=== PATIENT | female | born 1980 | race Caucasian/White ===

== ENCOUNTER → 2017-05-13 03:59 | Emergency (ER) | payer SELFPAY ==
[~2017-05-13 03:59] MED LIST: HYDROmorphone INJ* 1 MG/ML CARPUJECT SYRINGE IV SLOW PU ONE; Ketorolac INJ* 30 MG/ML 1 ML VIAL IV ONE; NS 0.9% 1000 ML* 2,000 ML IV ONE; Ondansetron INJ* 2 MG/ML VIAL IV ONE; oxyCODONE/Acetamin 5/325 MG* TAB PO ONE
[2017-05-13 04:33] LABS: Urine Bacteria 2+ (Absent); Urine Bilirubin Negative (Negative); Urine Glucose Negative (Negative); Urine Nitrite Negative (Negative)
[2017-05-13 05:15] LABS: Hematocrit 43 % (35-47); Hemoglobin 14.7 g/dl (12.0-16.0); Mean Corpuscular HGB Conc 34 g/dl (31-36); Mean Corpuscular Hemoglobin 29 pg (27-31); Mean Corpuscular Volume 86 fL (80-97); Mean Platelet Volume 8 um3 (7.4-10.4); Red Blood Count 5.02 10^6/ul (4.0-5.4); Red Cell Distribution Width 14 % (10.5-15); White Blood Count 10.6 10^3/ul (3.5-10.8)
[2017-05-13 05:27] LABS: ALT 19 U/L (7-52); AST 15 U/L (13-39); Albumin 4.2 g/dL (3.2-5.2); Alkaline Phosphatase 48 U/L (34-104); Anion Gap 6 mmol/L (2-11); BUN/Creatinine Ratio 16.2 (8-20); Blood Urea Nitrogen 16 mg/dL (6-24); C Reactive Protein 2.14 mg/L (< 5.00); CO2 Carbon Dioxide 23 mmol/L (22-32); Calcium 9.4 mg/dL (8.6-10.3); Chloride 107 mmol/L (101-111); EGFR African American 82.6 (>60); EGFR Non-African American 64.2 (>60); Glucose 104 mg/dL (70-100); Lipase 10 U/L (11.0-82.0); Potassium 3.9 mmol/L (3.5-5.0); Sodium 136 mmol/L (133-145); Total Protein 7.2 g/dL (6.4-8.9)
--- NOTE | 2017-05-13 06:44 | ED ---
Cara Martin Alfonso, scribed for Ngozi Ryan MD on 05/13/17 at 0457 . Abdominal Pain/Female - HPI Summary HPI Summary: This patient is a 36 year old F presenting to [facility] accompanied by with a chief complaint of suprapubic pain since a few hours ago. She states I started feeling like I had a UTI, but I may have passed a stone. The patient rates the pain 10/10 in severity. Symptoms aggravated by urination. Symptoms alleviated by nothing. Patient reports hematuria (last week), and dysuria. A0. - History of Current Complaint Chief Complaint: EDOBProblems Stated Complaint: LOWER ABD PAIN, PELVIC PAIN Time Seen by Provider: 05/13/17 04:26 Hx Obtained From: Patient Onset/Duration: Sudden Onset, Lasting Hours, Still Present Timing: Constant Severity Currently: Severe Pain Intensity: 10 Pain Scale Used: 0-10 Numeric Location: Suprapubic Aggravating Factor(s): Other: - urination Alleviating Factor(s): Nothing Associated Signs and Symptoms: Positive: Other: - hematuria (last week), and dysuria Allergies/Adverse Reactions: Allergies Allergy/AdvReac Type Severity Reaction Status Date / Time Hydrocodone Allergy Nausea And Verified 04/21/16 12:35 Vomiting PMH/Surg Hx/FS Hx/Imm Hx Endocrine/Hematology History: Denies: Hx Diabetes, Hx Thyroid Disease Cardiovascular History: Denies: Hx Hypercholesterolemia, Hx Hypertension, Hx Pacemaker/ICD, Hx Peripheral Vascular Disease Respiratory History: Reports: Hx Asthma Musculoskeletal History: Denies: Hx Arthritis, Hx Osteoporosis Sensory History: Denies: Hx Cataracts, Hx Contacts or Glasses, Hx Glaucoma Opthamlomology History: Denies: Hx Cataracts, Hx Contacts or Glasses, Hx Glaucoma Neurological History: Denies: Hx Headaches, Hx Seizures, Hx Transient Ischemic Attacks (TIA) Psychiatric History: Denies: Hx Anxiety, Hx Depression, Hx Panic Disorder - Surgical History Surgery Procedure, Year, and Place: TUBES IN EARS CHILD,TUBAL, TEETH REMOVAL Infectious Disease History: No Infectious Disease History: Denies: Traveled Outside the [place] in Last 30 Days - Family History Known Family History: Positive: Cardiac Disease, Diabetes, Other Family History: CVA and CA - Social History Alcohol Use: Occasionally Hx Substance Use: No Substance Use Type: Reports: Marijuana Hx Tobacco Use: Yes Smoking Status (MU): Former Smoker Review of Systems Negative: Fever Positive: Abdominal Pain - suprapubic Positive: dysuria, hematuria All Other Systems Reviewed And Are Negative: Yes Physical Exam - Summary Physical Exam Summary: General: Mildly ill appearing, no pain distress, Uncomfortable Skin: Warm, Skin Color Reflects Adequate Perfusion, Dry Eyes: EOMI, AKIKO ENT: Pharynx normal, TMs normal Neck: Supple, nontender Respiratory: CTA, breath sounds present, no rhonchi, no wheezes, no rales Cardiovascular: RRR, no murmur, no rub, no gallop Abdomen: Soft, Suprapubic tenderness, Non-distended, no guarding, no rebound Bowel: Present Musculoskeletal: MOODY, No edema Neuro: Sensory/motor intact, A&Ox3, CN intact 2-12 Psych: Affect/mood appropriate Triage Information Reviewed: Yes Vital Signs On Initial Exam: Initial Vitals Temp Pulse Resp BP Pulse Ox 97.0 F 83 20 147/80 98 05/13/17 04:00 05/13/17 04:00 05/13/17 04:00 05/13/17 04:00 05/13/17 04:00 Vital Signs Reviewed: Yes - Leslee Coma Scale Coma Scale Total: 15 Diagnostics - Vital Signs Vital Signs Temp Pulse Resp BP Pulse Ox 05/13/17 04:17 99 98 05/13/17 04:14 151/102 05/13/17 04:00 97.0 F 83 20 147/80 98 - Laboratory Lab Results: Lab Results 05/13/17 Range/Units 04:10 Urine Color Yellow Urine Appearance Cloudy Urine pH 6.0 (5-9) Ur Specific [place] 1.012 (1.010-1.030) Urine Protein 1+(30 mg/dl) H (Negative) Urine Ketones Negative (Negative) Urine Blood 2+ H (Negative) Urine Nitrate Negative (Negative) Urine Bilirubin Negative (Negative) Urine Urobilinogen Negative (Negative) Ur Leukocyte Esterase 3+ H (Negative) Urine WBC (Auto) 3+(>20/hpf) H (Absent) Urine RBC (Auto) 3+(>10/hpf) H (Absent) Ur Squamous Epith Cells Present H (Absent) Ur Renal Epithelial Cell Present H (Absent) Urine Bacteria 2+ H (Absent) Urine Glucose Negative (Negative) Result Diagrams: 05/13/17 05:00 05/13/17 05:00 Lab Statement: Any lab studies that have been ordered have been reviewed, and results considered in the medical decision making process. - CT A/P CT Interpretation Completed By: Radiologist - Adnexal cystic structure likely ovarian in origin. Correlation with history and pelvic exam is recommended. Pelvic US may be helpful for further evaluation. ED physician has reviewed this radiology report and agrees. Abdominal Pain Fem Course/Dx - Course Course Of Treatment: 36 yo female who reports dysuria and then an episode of difficulty peeing with the sound of a stone dropping into the toilet now with urine showing uti and ct showing known b/l ovarian cysts. Pt has already had ceftriaxone and will be getting cipro as an outpt - Diagnoses Provider Diagnoses: UTI (urinary tract infection) Discharge - Discharge Plan Condition: Stable Disposition: HOME Prescriptions: Ciprofloxacin TAB* [Cipro 500 MG TAB*] 500 mg PO BID #14 tab oxyCODONE/Acetamin 5/325 MG* [Percocet 5/325 TAB*] 1 tab PO Q8H PRN #9 tab MDD 3 PRN Reason: Pain The documentation as recorded by the Cara burris Alfonso accurately reflects the service I personally performed and the decisions made by me, Ngozi Ryan MD.
[2017-05-13 07:57] VITALS: BP 101/60
--- NOTE | 2017-05-13 08:05 | RAD ---
CLINICAL HISTORY: Hematuria, right-sided pain COMPARISON: None TECHNIQUE: Multiple contiguous axial CT scans were obtained of the abdomen and pelvis, without intravenous contrast enhancement. Coronal and sagittal multiplanar reformations are submitted for review. Oral contrast was not administered. FINDINGS: The study is limited by the lack of intravenous contrast. This limits evaluation of the solid organs and vasculature. LUNG BASES: The lung bases are clear. LIVER: The liver is normal in shape, size, contour, and attenuation. BILE DUCTS: There is no intrahepatic or extrahepatic biliary dilatation. GALLBLADDER: The gallbladder is normal, without pericholecystic inflammatory change. PANCREAS: The pancreas is normal, without mass or ductal dilatation. SPLEEN: Normal in size and appearance. UPPER GI TRACT: Evaluation of the gastrointestinal tract is limited by incomplete gastric distention. The upper GI tract is unremarkable. SMALL BOWEL AND MESENTERY: The small bowel is normal in contour, course, and caliber. There is no obstruction or dilatation. COLON: The colon is normal in contour, course, caliber. There is no pericolonic inflammatory change. ADRENALS: Normal bilaterally. KIDNEYS: The kidneys are normal in shape, size, contour, and axis. There is no hydronephrosis or nephrolithiasis. BLADDER: The bladder is smooth in contour. PELVIC ORGANS: Bilateral ovarian cysts are noted measuring simple fluid in attenuation, up to 3.3 cm in size. AORTA: The aorta is normal. IVC: Unremarkable LYMPH NODES: There is no lymphadenopathy by size criteria. ABDOMINAL WALL: There is no evidence for abdominal wall hernia. BONES AND SOFT TISSUES: The bones and soft tissues are unremarkable. OTHER: None IMPRESSION: 1. BILATERAL OVARIAN CYSTS. 2. NO APPRECIABLE HYDRONEPHROSIS OR NEPHROLITHIASIS.
--- NOTE | 2017-05-15 08:38 | PN ---
Progress Note - Progress Note Date of Service: 05/15/17 Note: Patient urine culture grew E coli 50-75,000. patient placed on cipro will wait for final culture.
== END | disposition home or self-care (01) ==
LOC: ED 03:59
DX: N39.0 Urinary tract infection, site not specified (principal); B96.20 Unspecified Escherichia coli [E. coli] as the cause of diseases classified elsewhere; R31.9 Hematuria, unspecified; Z32.02 Encounter for pregnancy test, result negative; J45.909 Unspecified asthma, uncomplicated; Z87.891 Personal history of nicotine dependence; F12.90 Cannabis use, unspecified, uncomplicated; Z88.5 Allergy status to narcotic agent
CPT/HCPCS: 36415; 74176; 80053; 81003; 81015; 83690; 84702; 85025; 86140; 87077; 87086; 87186; 96361; 96365; 96366; 96375; 99283; A9270-GY; J0696; J1170; J1885; J2405

== ENCOUNTER 2017-08-16 15:29 | Emergency (ER) | payer SELFPAY ==
[2017-08-16 15:34] VITALS: BP 108/97
[2017-08-16] MEDS ORDERED: Ibuprofen TAB* 600 MG PO ONE (16:45)
[2017-08-16] MEDS ORDERED: Ibuprofen TAB* 600 MG ONE (16:46)
--- NOTE | 2017-08-16 17:35 | RAD ---
INDICATION: LEFT wrist and thumb pain post fall. COMPARISON: No relevant prior exams available on the [facility] [place] PACS for comparison. TECHNIQUE: AP, lateral, and oblique views LEFT wrist. AP, lateral, and oblique views LEFT hand. REPORT: Normal articular alignment at the wrist and hand. No cortical disruption or suspicious trabecular irregularity to suggest fracture. No arthropathic change evident. Unremarkable soft tissue contours. IMPRESSION: Negative radiographic exam of the LEFT wrist and hand.
--- NOTE | 2017-08-16 17:35 | RAD ---
INDICATION: LEFT wrist and thumb pain post fall. COMPARISON: No relevant prior exams available on the [facility] [place] for comparison. TECHNIQUE: AP, lateral, and oblique views LEFT wrist. AP, lateral, and oblique views LEFT hand. REPORT: Normal articular alignment at the wrist and hand. No cortical disruption or suspicious trabecular irregularity to suggest fracture. No arthropathic change evident. Unremarkable soft tissue contours. IMPRESSION: Negative radiographic exam of the LEFT wrist and hand.
--- NOTE | 2017-08-16 19:37 | ED ---
Upper Extremity Pain - HPI Summary HPI Summary: Patient presents to the ED with CC of left hand and wrist pain. She states she lost her footing, slipped on the floor and fell backwards landing on an outstretched hand a few hours prior to arrival. She has diffuse pain over the left hand and left wrist. Denies numbness, tingling. Denies color or temperature changes. Thorough physical exam was performed, focusing on special wrist tests. Limited ROM. Pain with palpation over ulnar aspect of wrist at ulnar head. Pain with palpation over radial aspect over radial head. No pain, swelling or tenderness over anatomical snuffbox. No crepitus noted. No pain on palpation over medial or lateral elbow or forearm tenderness. Due to patient pain around injury, physical exam was limited. Pulses intact bilaterally. No temperature change, color change or pallor noted bilaterally. Sensory intact of radial, medial and ulnar nerve. Capillary refill < 2 sec. - History of Current Complaint Chief Complaint: EDExtremityUpper Stated Complaint: POSSIBLE BROKEN LEFT WRIST Time Seen by Provider: 08/16/17 15:40 Hx Obtained From: Patient Mechanism Of Injury: Blunt Trauma Onset/Duration: Started Hours Ago Timing: Constant Severity Initially: Moderate Severity Currently: Moderate Pain Location: Wrist, Hand Character: Aching, Throbbing Aggravating Factor(s): Movement, Lifting, Flexion, Extension, Internal/External Rotation, Abduction, Adduction Alleviating Factor(s): Ice Associated Signs & Symptoms: Negative: Swelling, Redness, Bruising, Numbness/ Tingling, Chest Pain, Diaphoresis, Nausea, Vomiting Related History: Dominant Hand Right - Risk Factors Non-Orthopedic Risk Factor: Negative DVT Risk Factors: Negative Septic Arthritis Risk Factor: Negative Compartment Syndrome Risk Factors: Pain - Allergies/Home Medications Allergies/Adverse Reactions: Allergies Allergy/AdvReac Type Severity Reaction Status Date / Time Hydrocodone Allergy Nausea And Verified 04/21/16 12:35 Vomiting PMH/Surg Hx/FS Hx/Imm Hx Previously Healthy: Yes Endocrine/Hematology History: Denies: Hx Diabetes, Hx Thyroid Disease Cardiovascular History: Denies: Hx Hypercholesterolemia, Hx Hypertension, Hx Pacemaker/ICD, Hx Peripheral Vascular Disease Respiratory History: Reports: Hx Asthma Musculoskeletal History: Denies: Hx Arthritis, Hx Osteoporosis Sensory History: Denies: Hx Cataracts, Hx Contacts or Glasses, Hx Glaucoma Opthamlomology History: Denies: Hx Cataracts, Hx Contacts or Glasses, Hx Glaucoma Neurological History: Denies: Hx Headaches, Hx Seizures, Hx Transient Ischemic Attacks (TIA) Psychiatric History: Denies: Hx Anxiety, Hx Depression, Hx Panic Disorder - Surgical History Surgery Procedure, Year, and Place: TUBES IN EARS CHILD,TUBAL, TEETH REMOVAL Infectious Disease History: No Infectious Disease History: Denies: Traveled Outside the [place] in Last 30 Days - Family History Known Family History: Positive: Cardiac Disease, Diabetes, Other Family History: CVA and CA - Social History Occupation: Employed Full-time Lives: With Family Alcohol Use: Occasionally Hx Substance Use: No Substance Use Type: Reports: Marijuana Hx Tobacco Use: Yes Smoking Status (MU): Former Smoker Review of Systems Constitutional: Negative Negative: Fever, Chills, Fatigue Eyes: Negative Cardiovascular: Negative Respiratory: Negative Positive: no symptoms reported, see HPI Positive: Arthralgia - left hand and wrist pain Skin: Negative Neurological: Negative All Other Systems Reviewed And Are Negative: Yes Physical Exam Triage Information Reviewed: Yes Vital Signs On Initial Exam: Initial Vitals Temp Pulse Resp BP Pulse Ox 98.0 F 98 19 108/97 99 08/16/17 15:30 08/16/17 15:30 08/16/17 15:30 08/16/17 15:30 08/16/17 15:30 Vital Signs Reviewed: Yes Appearance: Positive: Well-Appearing, Well-Nourished Skin: Positive: Warm, Skin Color Reflects Adequate Perfusion Head/Face: Positive: Normal Head/Face Inspection Eyes: Positive: EOMI, AKIKO, Conjunctiva Clear Neck: Positive: Supple, No Lymphadenopathy Respiratory/Lung Sounds: Positive: Clear to Auscultation, Breath Sounds Present Cardiovascular: Positive: Normal, RRR, Pulses are Symmetrical in both Upper and Lower Extremities Musculoskeletal: Positive: Pain @ - see above Neurological: Positive: Speech Normal Psychiatric: Positive: Normal, Affect/Mood Appropriate - [place] Coma Scale Coma Scale Total: 15 Diagnostics - Vital Signs Vital Signs Temp Pulse Resp BP Pulse Ox 08/16/17 15:30 98.0 F 98 19 108/97 99 - Laboratory Lab Statement: Any lab studies that have been ordered have been reviewed, and results considered in the medical decision making process. Course/Dx - Course Course Of Treatment: Based on [place] Wrist Rules, patient sent to imaging. Xray negative for fracture or other acute findings. Soft tissue swelling noted over the dorsal aspect of the wrist. Thumb spica placed and patient tolerated well to allow for immobilization for this period of time. Patient given orthopedic follow up in 5-7 days. Encouraged Ibuprofen 600mg three times daily with meals for pain. Return precautions given. Educated patient regarding wrist injuries, healing time and the possibility of further evaluation and imaging as orthopedist sees fit. - Diagnoses Provider Diagnoses: Wrist strain Discharge - Discharge Plan Condition: Stable Disposition: HOME Patient Education Materials: Wrist Sprain (ED) Referrals: Cat Watson MD [Medical Doctor] - Dagmar Gooden NP [Primary Care Provider] - Additional Instructions: German wrap area for your comfort and to allow for immobilization during this time to prevent re-injury. Ibuprofen 600mg three times daily with meals for pain. Follow up with orthopedic physician in 5-7 days. If numbness, tingling or decreased sensation develop, you notice color changes in your fingers or pain is worsening, come back to ED immediately for re- evaluation. Protect the area. For your comfort level, do not bear weight, pull or push until you can injury is somewhat healed. This may involve the need for immobilization or crutches for a period of time. Rest the involved area, but not too long. You may need to be off your injury for some time to allow for healing, however excessive immobilization of joints can lead to stiffness and delay healing time. Early mobilization is encouraged if it is pain-free. Ice. Not directly on the skin. Cover with a towel. Apply ice no more than 30 minutes at a time Compression: You may use and keep an german wrap bandage over the injury to decrease swelling. Again, this should be limited and be taken off periodically to encourage early range of motion and mobilization. Elevate: Try to elevate the injured area above the heart whenever possible.
== END 2017-08-16 18:33 | disposition home or self-care (01) ==
LOC: ED 15:29
DX: S66.912A Strain of unspecified muscle, fascia and tendon at wrist and hand level, left hand, initial encounter (principal); W01.0XXA Fall on same level from slipping, tripping and stumbling without subsequent striking against object, initial encounter; Y93.9 Activity, unspecified; Z87.891 Personal history of nicotine dependence; Z88.5 Allergy status to narcotic agent
CPT/HCPCS: 99282; A9270-GY

== ENCOUNTER 2017-12-31 08:13 | Emergency (ER) | payer SELFPAY ==
[2017-12-31 08:36] LABS: ABS Basophils 0.1 10^3/ul (0-0.2); ABS Eosinophils 0.1 10^3/ul (0-0.6); ABS Lymphocytes 2.5 10^3/ul (1.0-4.8); ABS Monocytes 0.6 10^3/ul (0-0.8); ABS Nucleated RBC 0 10^3/ul; Eosinophil % 1.1 % (0-6); Hematocrit 38 % (35-47); Hemoglobin 13.2 g/dl (12.0-16.0); Lymphocyte % 22.1 % (25-47); Mean Corpuscular HGB Conc 34 g/dl (31-36); Mean Corpuscular Hemoglobin 28 pg (27-31); Mean Corpuscular Volume 82 fL (80-97); Mean Platelet Volume 7.4 um3 (7.4-10.4); Nucleated Red Blood Cells % 0.1; Platelet Count 266 10^3/ul (150-450); Red Blood Count 4.65 10^6/ul (4.0-5.4); Red Cell Distribution Width 14 % (10.5-15); White Blood Count 11.4 10^3/ul (3.5-10.8)
[2017-12-31] MEDS ORDERED: Ketorolac INJ* 30 MG/ML 1 ML VIAL IV PUSH ONE (08:38)
--- NOTE | 2017-12-31 08:42 | ED ---
Abdominal Pain/Female - HPI Summary HPI Summary: Patient is an otherwise healthy 37-year-old female who presents to the ED with chief complaint of right flank pain radiating into the right lower quadrant and groin since last week. Pain has been intermittent and then constant. Denies any fevers, sweats, chills. 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 Never been diagnosed with a kidney stone. Endorses hematuria 2 days ago, but hasn't denied this since. Denies any constipation or diarrhea. Denies any vomiting. Last bowel movement yesterday. She continues to eat and drink okay. She denies any other UTI symptoms. She is afebrile on arrival and but other vital signs are stable. Mother is at bedside. Takes pantoprazole for GERD symptoms. 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 She appears in no acute distress on arrival. - History of Current Complaint Chief Complaint: EDFlankPain Stated Complaint: RT FLANK PAIN Time Seen by Provider: 12/31/17 08:14 Hx Obtained From: Patient ?: No Onset/Duration: Sudden Onset Timing: Constant Severity Initially: Moderate Severity Currently: Moderate Pain Intensity: 8 Pain Scale Used: 0-10 Numeric Location: Flank Radiates: Yes Radiates to: RLQ, Other - R groin Character: Sharp, Cramping Aggravating Factor(s): Nothing Alleviating Factor(s): Nothing Associated Signs and Symptoms: Positive: Diaphoresis, Urinary Symptoms - hematuria, Nausea. Negative: Fever, Cough, Chest Pain, Constipation, Blood in Stool, Decreased Appetite, Vaginal Bleeding, Vomiting - Risk Factors Ectopic Risk Factor: Negative Ovarian Torsion Risk Factor: Reproductive Age Allergies/Adverse Reactions: Allergies Allergy/AdvReac Type Severity Reaction Status Date / Time hydrocodone Allergy Nausea And Verified 12/31/17 08:14 Vomiting Home Medications: Home Medications Pantoprazole TAB (NF) [Protonix TAB (NF)] 40 mg PO DAILY 12/31/17 [History Confirmed 12/31/17] PMH/Surg Hx/FS Hx/Imm Hx Previously Healthy: Yes Endocrine/Hematology History: Denies: Hx Diabetes, Hx Thyroid Disease Cardiovascular History: Denies: Hx Hypercholesterolemia, Hx Hypertension, Hx Pacemaker/ICD, Hx Peripheral Vascular Disease Respiratory History: Reports: Hx Asthma Musculoskeletal History: Denies: Hx Arthritis, Hx Osteoporosis Sensory History: Denies: Hx Cataracts, Hx Contacts or Glasses, Hx Glaucoma Opthamlomology History: Denies: Hx Cataracts, Hx Contacts or Glasses, Hx Glaucoma Neurological History: Denies: Hx Headaches, Hx Seizures, Hx Transient Ischemic Attacks (TIA) Psychiatric History: Denies: Hx Anxiety, Hx Depression, Hx Panic Disorder - Surgical History Surgery Procedure, Year, and Place: TUBES IN EARS CHILD,TUBAL, TEETH REMOVAL - Immunization History Hx Pertussis Vaccination: No Immunizations Up to Date: Unable to Obtain/Confirm Infectious Disease History: No Infectious Disease History: Denies: Traveled Outside the [place] in Last 30 Days - Family History Known Family History: Positive: Cardiac Disease, Diabetes, Other Family History: CVA and CA - Social History Occupation: Employed Full-time Lives: With Family Alcohol Use: Occasionally Hx Substance Use: No Substance Use Type: Reports: None Hx Tobacco Use: Yes Smoking Status (MU): Former Smoker Review of Systems Constitutional: Negative Negative: Fever, Chills, Fatigue, Skin Diaphoresis Eyes: Negative Cardiovascular: Negative Negative: Shortness Of Breath, Cough Positive: Abdominal Pain, Nausea. Negative: Vomiting, Diarrhea Positive: flank pain - R, hematuria Musculoskeletal: Negative Skin: Negative Neurological: Negative All Other Systems Reviewed And Are Negative: Yes Physical Exam Triage Information Reviewed: Yes Vital Signs On Initial Exam: Initial Vitals Temp Pulse Resp BP Pulse Ox 97.9 F 87 16 132/78 96 12/31/17 08:15 12/31/17 08:15 12/31/17 08:15 12/31/17 08:15 12/31/17 08:15 Vital Signs Reviewed: Yes Appearance: Positive: Well-Appearing, Well-Nourished Skin: Positive: Warm, Skin Color Reflects Adequate Perfusion Head/Face: Positive: Normal Head/Face Inspection Eyes: Positive: EOMI, AKIKO, Conjunctiva Clear Neck: Positive: Supple, Nontender, No Lymphadenopathy Respiratory/Lung Sounds: Positive: Clear to Auscultation, Breath Sounds Present Cardiovascular: Positive: Normal, RRR, Pulses are Symmetrical in both Upper and Lower Extremities Abdomen Description: Positive: Nontender, Soft, CVA Tenderness (R) Bowel Sounds: Positive: Present Musculoskeletal: Positive: Normal, Strength/ROM Intact Neurological: Positive: Sensory/Motor Intact, Alert, Oriented to Person Place, Time, Speech Normal Psychiatric: Positive: Normal, Affect/Mood Appropriate AVPU Assessment: Alert Diagnostics - Vital Signs Vital Signs Temp Pulse Resp BP Pulse Ox 12/31/17 08:33 82 123/78 96 12/31/17 08:27 89 97 12/31/17 08:15 97.9 F 87 16 132/78 96 - Laboratory Lab Results: Lab Results 12/31/17 Range/Units 08:27 WBC 11.4 H (3.5-10.8) 10^3/ul RBC 4.65 (4.0-5.4) 10^6/ul Hgb 13.2 (12.0-16.0) g/dl Hct 38 (35-47) % MCV 82 (80-97) fL MCH 28 (27-31) pg MCHC 34 (31-36) g/dl RDW 14 (10.5-15) % Plt Count 266 (150-450) 10^3/ul MPV 7.4 (7.4-10.4) um3 Neut % (Auto) 70.4 (38-83) % Lymph % (Auto) 22.1 L (25-47) % [place] % (Auto) 5.5 (0-7) % Eos % (Auto) 1.1 (0-6) % Baso % (Auto) 0.9 (0-2) % Absolute Neuts (auto) 8.0 H (1.5-7.7) 10^3/ul Absolute Lymphs (auto) 2.5 (1.0-4.8) 10^3/ul Absolute Monos (auto) 0.6 (0-0.8) 10^3/ul Absolute Eos (auto) 0.1 (0-0.6) 10^3/ul Absolute Basos (auto) 0.1 (0-0.2) 10^3/ul Absolute Nucleated RBC 0 10^3/ul Nucleated RBC % 0.1 Result Diagrams: 12/31/17 08:27 12/31/17 08:27 Lab Statement: Any lab studies that have been ordered have been reviewed, and results considered in the medical decision making process. Re-Evaluation - Re-Evaluation First Eval Change: Unchanged - states unchanged despite having toradol Abdominal Pain Fem Course/Dx - Course Course Of Treatment: During the course of treatment, the patient is evaluated for right flank pain radiating into the right lower quadrant and groin. Denies any urinary symptoms other than gross hematuria 2 days ago. Toradol 30 mg IV given on arrival. Labs obtained. CT abdomen and pelvis without contrast. Urinalysis obtained showing no leuks, WBC. IMPRESSION: NO OBSTRUCTIVE UROPATHY IS PRESENT. APPENDIX IS NORMAL. RIGHT OVARIAN CYST MEASURING UP TO 4.0 CM. SMALL LYMPH NODES IN THE CECAL MESENTERY FOR. WHICH MESENTERIC ADENITIS CANNOT BE EXCLUDED. Discussed at length with patient the results of CT scan and labs. She states she does not feel these are accurate as she continues to have right back pain radiating into the right lower quadrant. The appendix was visualized and commented and right adnexal cyst measuring 4 cm is noted. Unlikely ovarian torsion as symptoms have been present for over 1 week and have been intermittent. Patient is requesting a CT abdomen and pelvis with contrast. ski technician to speak with patient to give risks involved with CT and patient declines at this time. Patient appears to be upset but is requesting discharge. 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 - Diagnoses Differential Diagnosis: Positive: Ovarian Cyst Provider Diagnoses: Ovarian cyst Is Visit Related: No - Provider Notifications Instructed by Provider To: Have Pt Call For Appt. - OBGYN Discharge - Sign-Out/Discharge Documenting (check all that apply): Discharge/Admit/Transfer - Discharge Plan Condition: Stable Disposition: HOME Patient Education Materials: Ovarian Cyst (ED) Forms: *Work Release Referrals: Michelle Monteiro MD [Medical Doctor] - No Primary Care Phys,NOPCP [Primary Care Provider] - Additional Instructions: Please follow up with OBGYN regarding ovarian cyst - Billing Disposition and Condition Condition: STABLE Disposition: HOME
[2017-12-31 08:44] LABS: Urine Appearance Clear; Urine Blood Negative (Negative); Urine Color Yellow; Urine Ketones Negative (Negative); Urine Protein Negative (Negative); Urine Specific Gravity 1.025 (1.010-1.030); Urine Urobilinogen Negative (Negative)
[2017-12-31 09:01] LABS: EGFR Non-African American 77.2 (>60)
--- NOTE | 2017-12-31 09:31 | RAD ---
Mirna: Right-sided flank pain. CT of the abdomen and pelvis was performed without oral or IV contrast administration. Coronal and sagittal reconstructed images were obtained. The lung bases demonstrate no pleural fluid, nodules or masses. Heart is of normal size without evidence of pericardial effusion. Liver is normal in size. No focal lesions or intrahepatic ductal dilatation is noted. The gallbladder demonstrates no calcified gallstones. Common duct is not dilated. The pancreas demonstrates no mass or pancreatic ductal dilatation. The spleen is normal in size. No adrenal masses noted. The kidneys demonstrate no hydronephrosis. No retroperitoneal lymphadenopathy is noted. No dilated loops of bowel are noted. The colon is filled with stool. CT of the pelvis demonstrates diverticulosis. The appendix is normal. The uterus is unremarkable. There is a right adnexal cyst measuring up to 4.0 cm. Left ovary demonstrates follicular cyst. No free fluid is identified. No inguinal hernias are noted. There may be some small lymph nodes in the right pericecal mesentery and the possibility of mesenteric adenitis should BE considered. IMPRESSION: NO OBSTRUCTIVE UROPATHY IS PRESENT. APPENDIX IS NORMAL. RIGHT OVARIAN CYST MEASURING UP TO 4.0 CM. SMALL LYMPH NODES IN THE CECAL MESENTERY FOR WHICH MESENTERIC ADENITIS CANNOT BE EXCLUDED.
[2017-12-31] MEDS ORDERED: Morphine VIAL* 4 MG/ML VIAL (1 ml vial) IV ONE (10:02)
[2017-12-31] MEDS ORDERED: Metoclopramide IV* 5 MG/ML 2 ML VIAL IV ONE (10:02)
[2017-12-31 10:51] VITALS: BP 125/85
== END 2017-12-31 10:33 | disposition home or self-care (01) ==
LOC: ED 08:13
DX: N83.202 Unspecified ovarian cyst, left side (principal); K21.9 Gastro-esophageal reflux disease without esophagitis; Z87.891 Personal history of nicotine dependence
CPT/HCPCS: 36415; 74176; 80053; 81003; 81015; 83605; 84702; 85025; 86140; 87086; 96374; 96375; 99283; J1885; J2270; J2765

== ENCOUNTER 2019-01-08 06:12 | Emergency (ER) | payer SELFPAY ==
[2019-01-08] MEDS ORDERED: cefTRIAXone VIAL(*) 1,000 MG VIAL IM ONE (07:27)
[2019-01-08 08:24] VITALS: BP 120/96
--- NOTE | 2019-01-08 08:29 | ED ---
Skin Complaint - HPI Summary HPI Summary: Patient presents to the ED with possible bug bite to the right upper arm to the ventral side. The area is approximately 8 cm in width and 15 cm in length. She states the symptoms began on Wednesday. She states she awoke with an erythematous jose with central clearing. The areas begun to spread, extending to the elbow and just distal to the axillary area. The area is warm and erythematous and painful to touch. She states she has never had an abscess to this area before. She believes bug bite, but does not recall getting a but bite. No history of tics or other rashes. She does state she lives in the [facility]. She's not been using anything [id number] for relief. - History of Current Complaint Chief Complaint: EDExtremityUpper Time Seen by Provider: 01/08/19 06:28 Stated Complaint: BUG BITE ARM IS SWOLLEN AND HOT PER PT Hx Obtained From: Patient Onset/Duration: Started Hours Ago Skin Exposure Onset/Duration: Hours Ago Timing: Constant Current Severity: Moderate Pain Intensity: 6 Pain Scale Used: 0-10 Numeric Skin Location: Arm Character: Swelling, Pain, Redness, Raised, Painful Aggravating Symptom(s): Touch Alleviating Symptom(s): Nothing Associated Signs & Symptoms: Negative, Tenderness, Red Streaks Related History: Insect Bite/Sting - Allergy/Home Medications Allergies/Adverse Reactions: Allergies Allergy/AdvReac Type Severity Reaction Status Date / Time hydrocodone Allergy Nausea And Verified 01/08/19 06:16 Vomiting PMH/Surg Hx/FS Hx/Imm Hx Previously Healthy: Yes Endocrine/Hematology History: Denies: Hx Diabetes, Hx Thyroid Disease Cardiovascular History: Denies: Hx Hypercholesterolemia, Hx Hypertension, Hx Pacemaker/ICD, Hx Peripheral Vascular Disease Respiratory History: Reports: Hx Asthma Musculoskeletal History: Denies: Hx Arthritis, Hx Osteoporosis Sensory History: Denies: Hx Cataracts, Hx Contacts or Glasses, Hx Glaucoma Opthamlomology History: Denies: Hx Cataracts, Hx Contacts or Glasses, Hx Glaucoma Neurological History: Denies: Hx Headaches, Hx Seizures, Hx Transient Ischemic Attacks (TIA) Psychiatric History: Denies: Hx Anxiety, Hx Depression, Hx Panic Disorder - Surgical History Surgery Procedure, Year, and Place: TUBES IN EARS CHILD,TUBAL, TEETH REMOVAL - Immunization History Hx Pertussis Vaccination: No Immunizations Up to Date: Yes Infectious Disease History: No Infectious Disease History: Denies: Traveled Outside the [place] in Last 30 Days - Family History Known Family History: Positive: Cardiac Disease, Diabetes, Other Family History: CVA and CA - Social History Occupation: Employed Full-time Lives: With Family Alcohol Use: Rare Hx Substance Use: No Substance Use Type: Reports: None Hx Tobacco Use: Yes Smoking Status (MU): Light Every Day Tobacco Smoker Review of Systems Constitutional: Negative Negative: Fever, Chills, Fatigue, Skin Diaphoresis Negative: Palpitations, Chest Pain Negative: Shortness Of Breath, Cough Genitourinary: Negative Positive: no symptoms reported, see HPI Negative: Arthralgia, Myalgia Positive: Other - right upper arm swelling, redness Neurological: Negative All Other Systems Reviewed And Are Negative: Yes Physical Exam Triage Information Reviewed: Yes Vital Signs On Initial Exam: Initial Vitals Temp Pulse Resp BP Pulse Ox 98.1 F 90 16 141/88 98 01/08/19 06:14 01/08/19 06:14 01/08/19 06:14 01/08/19 06:14 01/08/19 06:14 Vital Signs Reviewed: Yes Appearance: Positive: Well-Appearing, Well-Nourished Skin: Positive: Skin Color Reflects Adequate Perfusion, Other - erythematous area with warmth Eyes: Positive: EOMI, Conjunctiva Clear Neck: Positive: No Lymphadenopathy Respiratory/Lung Sounds: Positive: Clear to Auscultation, Breath Sounds Present Cardiovascular: Positive: RRR, Pulses are Symmetrical in both Upper and Lower Extremities Musculoskeletal: Positive: Strength/ROM Intact Neurological: Positive: Speech Normal Psychiatric: Positive: Affect/Mood Appropriate Diagnostics - Vital Signs Vital Signs Temp Pulse Resp BP Pulse Ox 01/08/19 07:17 91 137/85 95 01/08/19 06:14 98.1 F 90 16 141/88 98 - Laboratory Lab Statement: Any lab studies that have been ordered have been reviewed, and results considered in the medical decision making process. Course/Dx - Course Course Of Treatment: In the course of treatment, the patient is evaluated for a possible bug bite. On the ventral side of the right upper arm there is a 8 x 14 cm erythematous warm painful to touch area with a central clearing. This may resemble a EM rash. Discussed with the patient possible etiologies. Patient denies any known tick bites, however she does state she lives in the [facility]. No known Lyme disease diagnoses. Patient will be placed on a 14 day cycle of doxycycline for cellulitis and to cover a possible Lyme rash. She will follow-up with her formerly [facility] in 3-4 days. Discussed the possibility of obtaining a Lyme titer at a later date. At this time, the results will most likely be falsely positive or negative. - Differential Diagnoses - Skin Complaint Differential Diagnoses: Other - tick bite, rash, cellulitis, abscess - Diagnoses Provider Diagnoses: Bug bite Discharge - Sign-Out/Discharge Documenting (check all that apply): Patient Departure Patient Received Moderate/Deep Sedation with Procedure: No - Discharge Plan Condition: Stable Disposition: HOME Prescriptions: DOXYcycline CAP(*) [DOXYcycline 100MG CAP(*)] 100 mg PO BID #20 cap MDD 2 DOXYcycline CAP(*) [DOXYcycline 100MG CAP(*)] 100 mg PO BID #8 cap Patient Education Materials: Cellulitis (ED) Referrals: [facility] [Outside] Non Staff,Doctor [Primary Care Provider] - Additional Instructions: This may be a tick bite as discussed Doxycycline BID x 14 days Please follow up with PCP/[facility] Return to the ED if you have worsening symptoms or fevers - Billing Disposition and Condition Condition: STABLE Disposition: Home
== END 2019-01-08 08:24 | disposition home or self-care (01) ==
LOC: ED 06:12
DX: S40.861A Insect bite (nonvenomous) of right upper arm, initial encounter (principal); W57.XXXA Bitten or stung by nonvenomous insect and other nonvenomous arthropods, initial encounter; Y92.9 Unspecified place or not applicable; F17.210 Nicotine dependence, cigarettes, uncomplicated
CPT/HCPCS: 96372; 99283; J0696